=== PATIENT | male | born 1985 | race Caucasian/White ===

== ENCOUNTER 2022-06-25 18:21 | Emergency (ER) | payer OTHER ==
[~2022-06-25] VITALS: Ht 180.3 cm; Wt 95.5 kg
[2022-06-25 18:35] VITALS: TEMP 98
[2022-06-25 22:13] VITALS: BP 135/89; PULSE 67
== END 2022-06-25 22:14 | disposition home or self-care (01) ==
LOC: COL.ER 18:21
DX: H57.02 Anisocoria (principal)